=== PATIENT | female | born 1940 | race African-American/Black ===

== ENCOUNTER 2024-12-15 10:40 | Emergency (ER) | payer MEDICARE, MEDICAID, SELFPAY ==
--- NOTE | ~2024-12-15 | CT_ITS ---
EXAMINATION: 1. CT facial & cervical spine wo DATE: 12/15/2024 11:04 INDICATION: Fall with head injury and left periorbital ecchymoses TECHNIQUE: 1. Computed tomography (CT) of the maxillofacial region and of the cervical spine were performed without intravenous contrast. Sagittal and coronal reconstructions of both regions were obtained. Automated exposure control and iterative reconstruction technique were employed. The dose-length product was 195.48 mGy-cm. COMPARISON: Head CT dated 12/15/2024 FINDINGS: Maxillofacial CT: No maxillofacial fractures. Specifically the nasal bones, zygomatic arches, mandible and bermudez of the orbits and paranasal sinuses are normal. There there is motion artifact at the level of the left nasal bone however this is assessed without motion on the immediately prior head CT. Changes of bilateral intraocular lens replacement. Orbits are otherwise normal with no post septal inflammatory stranding. Minimal mucoperiosteal thickening along the floor the right maxillary sinus. Mastoid air cells and middle ear cavities are clear. Cervical spine CT: Straightening of the normal cervical lordosis. Vertebral body heights are normal. No acute fracture. Severe disc height loss with prominent degenerative endplate changes at C3-C4 through C6-C7. There are disc bulges at each of these levels contributing to moderate neural foraminal stenosis at C3-C4 and mild at the more caudal levels. 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 Mild to moderate osteoarthritis at the more cephalad cervical facets. This continues to moderate neural foraminal stenosis bilaterally at C3-C4, C5-C6, C6-C7 and on the left at C4-C5. Mild neural from stenosis at majority the remaining neural foramina. Atherosclerotic calcifications at the bilateral carotid bulbs. Cervical soft tissues are otherwise unremarkable. Visualized apices of lungs are clear. IMPRESSION: 1. No maxillofacial fractures. 2. Severe cervical spondylosis with no acute osseous adenopathy. Reviewed, dictated and finalized at location A.
--- NOTE | ~2024-12-15 | CT_ITS ---
History: Fall PROCEDURE: CT head without contrast. COMPARISON: None TECHNIQUE: Axial imaging of the head performed from the skull base to the vertex without IV contrast. Sagittal and coronal reformations obtained. DLP: 530 mGy-cm FINDINGS: The ventricles are enlarged. The dilatation of the ventricles is proportional to the degree of sulcal prominence, not uncommon in the senescent brain. Decreased attenuation is identified within the periventricular white matter, likely secondary to microvascular ischemic disease, in a patient of this age. There is no mass, mass effect or midline shift. There is no abnormal extra-axial fluid collection or intracranial hemorrhage. Visualized paranasal sinuses are clear. The mastoid air cells are well aerated. No acute displaced fractures within the overlying cranium. Impression: No acute intracranial hemorrhage or suspicious mass effect. Reviewed, dictated and finalized at location A. Impression: No acute intracranial hemorrhage or suspicious mass effect.
--- NOTE | ~2024-12-15 | XR_ITS ---
EXAMINATION: XR pelvis 1-2V DATE: 12/15/2024 11:14 INDICATION: Patient unable to fully straighten legs TECHNIQUE: An anteroposterior view of the pelvis was obtained. COMPARISON: None. FINDINGS: Bones appear osteopenic. There is bowel gas and stool projecting over the pelvis which limits evaluation. There are a few less than 1.0 cm calcifications projecting over the pelvis which may represent phleboliths, however, a distal ureteral stone or bladder stone or possible. Moderate degenerative change in the hips. No fracture identified. IMPRESSION: 1. No fracture identified. 2. Moderate degenerative change about the hips. If symptoms persist or worsen, consider a short-term follow-up study or additional imaging for further assessment. Reviewed, dictated and finalized at location Q. IMPRESSION: 1. No fracture identified. 2. Moderate degenerative change about the hips. If symptoms persist or worsen, consider a short-term follow-up study or additio nal imaging for further assessment.
--- NOTE | ~2024-12-15 | XR_ITS ---
EXAMINATION: XR chest 1V portable 12/15/2024 11:14 INDICATION: Patient unable to fully straighten legs TECHNIQUE:A single supine frontal image of the chest was obtained. COMPARISON: None available FINDINGS: The lungs are clear. The cardiomediastinal silhouette is within normal limits. There are no pleural effusions. There is no pneumothorax suspected. IMPRESSION: 1: NO ACUTE CARDIOPULMONARY DISEASE. Reviewed, dictated and finalized at location Q.
[2024-12-15 10:42] VITALS: BP 131/72; PULSE 79; RESP 18; TEMP 36.4; O2SAT 99
--- NOTE | 2024-12-15 10:52 | ED.FALL ---
HPI - Fall General Chief Complaint: Fall Stated Complaint: fall Time Seen by Provider: 12/15/24 10:45 Source: EMS Mode of arrival: EMS Limitations: dementia History of Present Illness HPI Narrative: This is an 84-year-old female that presents to emergency department after a fall in her bed her facility. Patient unable to give any history due to dementia. She does not overtly endorse any pain. Related Data Allergies Allergy/AdvReac Type Severity Reaction Status Date / Time No Known Allergies Allergy Verified 12/15/24 10:53 Review of Systems Review of Systems: All systems reviewed & are unremarkable except as noted in HPI and below PMFSH Past Medical History Medical History (Updated 12/15/24 @ 11:33 by Audrey Weinstein PA-C) History of dementia History of diabetes mellitus History of gastroesophageal reflux (GERD) History of hypertension Exam Narrative: GENERAL: Elderly, well-nourished, and in no acute distress. HEAD: Normocephalic. Bruising of the left eyelid EYES: PERRLA and EOMI. ENT: Nares clear, no rhinorrhea or epistaxis. Mucous membranes moist. Oropharynx without tonsillar hypertrophy exudate or other lesions. Bilateral TMs pearly escalona non-bulging NECK: Supple. No adenopathy or masses. CHEST: Clear to auscultation. No respiratory distress. No wheezes rales or rhonchi HEART: Regular rate and rhythm. No murmur heard. Normal peripheral pulses. ABDOMEN: Soft, nontender, nondistended, normal active bowel sounds. EXTREMITIES: Normal range of motion. No edema or obvious deformity. SKIN: Warm, dry, no rash. NEURO: No focal deficits. Alert and oriented x1. PSYCH: Normal mood and affect Course Vital Signs Vital signs: Vital Signs Temperature 97.6 F 12/15/24 10:42 Pulse Rate 79 12/15/24 10:42 Respiratory Rate 18 12/15/24 10:42 Blood Pressure 131/72 12/15/24 10:42 Pulse Oximetry 99 12/15/24 10:42 Oxygen Delivery Room Air 12/15/24 10:42 Temperature 97.6 F 12/15/24 10:42 Pulse Rate 79 12/15/24 10:42 Respiratory Rate 18 12/15/24 10:42 Blood Pressure 131/72 12/15/24 10:42 Pulse Oximetry 99 12/15/24 10:42 Oxygen Delivery Room Air 12/15/24 10:42 MDM - Fall MDM Narrative Medical decision making narrative: Patient presents the emergency department after a fall out of her bed her facility today. Her vital signs are normal. She does not overtly endorse any pain. She has some bruising to the left eyelid, which does appear likely old. Otherwise no traumatic findings on exam. CT brain, facial bones, cervical spine without acute posttraumatic findings. Chest and pelvic x-rays without acute findings. Discharged back to her facility in stable condition Differential Diagnosis Differential diagnosis: Likely concussion without loss of consciousness and other (Subdural hemorrhage, facial bone fracture, cervical spine fracture, contusion) Imaging Data Radiologist's impression: ITS Impressions Head/Cervical Spine/Facial Bones CT 12/15/24 11:17 IMPRESSION: 1. No maxillofacial fractures. 2. Severe cervical spondylosis with no acute osseous adenopathy. Pelvis X-Ray 12/15/24 11:18 IMPRESSION: 1. No fracture identified. 2. Moderate degenerative change about the hips. If symptoms persist or worsen, consider a short-term follow-up study or additional imaging for further assessment. Chest X-Ray 12/15/24 11:21 IMPRESSION: 1: NO ACUTE CARDIOPULMONARY DISEASE. Head CT 12/15/24 11:23 Impression: No acute intracranial hemorrhage or suspicious mass effect. Critical Care Time Critical Care Time Critical Care Time: No Discharge Plan Discharge Clinical Impression: Fall Qualifiers: Encounter type: initial encounter Qualified Code(s): W19.XXXA - Unspecified fall, initial encounter Patient Disposition: NH [facility]/Asst Living Condition: Stable Instructions: Fall Prevention for Older Adults (ED) Additional Instructions: Return to the emergency department if you experience fever, chest pain, shortness of breath, abdominal pain with nausea and vomiting, weakness, numbness, or any other symptoms that are concerning to you. Follow up with your primary care doctor Patient Language: Romanian Follow-up/Referrals: UNKNOWN,DOCTOR [Primary Care Provider] Stand Alone Forms: [facility] Discharge
[2024-12-15 11:53] VITALS: BP 134/105; PULSE 80; RESP 16; O2SAT 97
== END 2024-12-15 13:38 ==
PROVIDERS: Emergency Provider Physician Assistant
DX: Z04.3 Encounter for examination and observation following other accident (principal); F03.90 Unspecified dementia, unspecified severity, without behavioral disturbance, psychotic disturbance, mood disturbance, and anxiety; E11.9 Type 2 diabetes mellitus without complications; I10 Essential (primary) hypertension; K21.9 Gastro-esophageal reflux disease without esophagitis; W06.XXXA Fall from bed, initial encounter; M47.812 Spondylosis without myelopathy or radiculopathy, cervical region
CPT/HCPCS: 70450; 70486; 71045; 72125; 72170; 99284